=== PATIENT | female | born 1945 | race Caucasian/White ===

== ENCOUNTER 2022-04-26 19:09 | Emergency (ER) | payer MEDICARE ==
[~2022-04-26] VITALS: Ht 160 cm; Wt 37.8 kg
[2022-04-26] MEDS ORDERED: acetaminophen 325mg tablet PO ONE (19:55)
[2022-04-26 20:30] LABS: BASOPHILS % (AUTO) 0.2 % (0-1); EOSINOPHILS % (AUTO) 0.2 % (0-6); HEMOGLOBIN 11.6 g/dl (12.0-16.0); LYMPHOCYTES # (AUTO) 0.6 X10'3 (1.1-4.8); LYMPHOCYTES % (AUTO) 8.7 % (21-51); MEAN CORPUSCULAR HEMOGLOBIN 31.8 PG (27.0-31.0); MEAN CORPUSCULAR HGB CONC 33.1 g/dL (33.0-36.5); MEAN CORPUSCULAR VOLUME 96.1 FL (78-98); MEAN PLATELET VOLUME 9.5 FL (7.4-10.4); MONOCYTES # (AUTO) 0.4 X10'3 (0-0.9); MONOCYTES % (AUTO) 5.1 % (2-12); NEUTROPHILS # (AUTO) 6.3 X10'3 (1.8-7.7); NEUTROPHILS % (AUTO) 85.8 % (42-75); PLATELET COUNT 271 X10'3 (140-440); RED BLOOD COUNT 3.65 X10'6 (4.20-5.60); RED CELL DISTRIBUTION WIDTH 14.9 % (11.5-14.5); WHITE BLOOD COUNT 7.4 X10'3 (4.5-11.0)
[2022-04-26 21:18] LABS: ALANINE AMINOTRANSFERASE 26 U/L (12-78); ALBUMIN 2.8 G/DL (3.4-5.0); ALBUMIN/GLOBULIN RATIO 0.8 (1.1-1.5); ALKALINE PHOSPHATASE 68 IU/L (46-116); ANION GAP 9 (8-16); ASPARTATE AMINO TRANSFERASE 28 U/L (10-37); BILIRUBIN,TOTAL 0.3 MG/DL (0.1-1.0); BLOOD UREA NITROGEN 21 MG/DL (7-18); BUN/CREATININE RATIO 40.4 (6.6-38.0); CALCIUM 9.2 MG/DL (8.5-10.1); CHLORIDE 104 MMOL/L (99-107); CREATININE 0.52 MG/DL (0.40-0.90); GLUCOSE 100 MG/DL (70-104); SODIUM 144 MMOL/L (135-145); TOTAL PROTEIN 6.1 G/DL (6.4-8.2); eGFR > 90 ML/MIN
[2022-04-26] MEDS ORDERED: iohexol 300mg/ml 100ml inj. ONE (21:19)
[2022-04-26 21:27] LABS: CREATINE KINASE 37 U/L (26-192); LIPASE 93 U/L (73-393); MAGNESIUM 1.6 MG/DL (1.5-2.4)
--- NOTE | 2022-04-26 21:30 | NUR ---
talked with Heri and he does not know her allergy's just knows she's allergic to a lot of things including antibotics, states she usally goes to [facility].
[2022-04-26 21:33] LABS: CLARITY,URINE CLEAR (Clear); COLOR,URINE STRAW (Yellow); GLUCOSE, URINE NEGATIVE (Neg); KETONES,URINE NEGATIVE (Neg); LEUKOCYTE ESTERASE ,URINE NEGATIVE (Neg); NITRITES, URINE NEGATIVE (Neg); OCCULT BLOOD,URINE TRACE-INTACT (Neg); PROTEIN,URINE NEGATIVE (Neg); UROBILINOGEN,URINE 0.2 E.U/dL (0.2-1.0)
[2022-04-26 21:35] LABS: UA COLLECTION TYPE STRAIGHT CATH
[2022-04-26 21:47] LABS: BACTERIA,URINE FEW /HPF (Neg); RBC,URINE 0-2 /HPF (0-2); SQUAMOUS EPITHELIAL CELL,UR NONE SEEN /LPF (FEW); WBC,URINE 0-4 /HPF (0-4)
[2022-04-26 21:48] LABS: TRIPLE PHOSPHATE CRYST 1+ /HPF (NEGATIVE)
[2022-04-26 23:38] VITALS: BP 122/72
--- NOTE | 2022-04-26 23:41 | NUR ---
2320 Heri called and notified of dishcharge, states he will come and pick her up, will take about 45 min. [id number] discharged instruction given to patient and discussed over the phone, pt advised to follow up with her doctor, noel roca. of urine, pt cleaned, diaper placed and clothing placed on pt, pt resting in bed at this time awaiting ride from .
== END 2022-04-27 00:06 | disposition home or self-care (01) ==
LOC: ER 19:10
DX: R10.84 Generalized abdominal pain (principal); R11.2 Nausea with vomiting, unspecified; I10 Essential (primary) hypertension; E03.9 Hypothyroidism, unspecified; Z79.899 Other long term (current) drug therapy; Z90.49 Acquired absence of other specified parts of digestive tract
CPT/HCPCS: 36415; 71045; 74177; 80053; 81001; 82550; 83690; 83735; 84439; 84443; 84484; 85025; 93005; 99285; J3490; Q9967

== ENCOUNTER 2023-08-06 18:16 | Emergency (ER) | payer MEDICARE, OTHER ==
[~2023-08-06] VITALS: Ht 160 cm; Wt 44.5 kg
[2023-08-06 20:12] VITALS: BP 139/90; PULSE 80; RESP 16; TEMP 98.6; O2SAT 94
== END 2023-08-06 20:14 | disposition home or self-care (01) ==
LOC: ER 18:17
DX: H57.89 Other specified disorders of eye and adnexa (principal); E03.9 Hypothyroidism, unspecified; I10 Essential (primary) hypertension; Z79.899 Other long term (current) drug therapy
CPT/HCPCS: 99284

== ENCOUNTER 2023-08-17 12:50 | Emergency (ER) | payer MEDICARE ==
[~2023-08-17] VITALS: Ht 162.6 cm; Wt 40.9 kg
[2023-08-17 13:16] VITALS: TEMP 97.6
[2023-08-17] MEDS ORDERED: CYCL-1 PO (17:28)
[2023-08-17] MEDS: cloNIDine 0.1 mg tablet PO ONE (17:38)
[2023-08-17] MEDS: ibuprofen tablet 400 MG TABLET PO ONE (17:38)
[2023-08-17] MEDS: LORazepam 1 MG tablet PO ONE (17:38)
[2023-08-17] MEDS ORDERED: CARB15DR91 LEFT EAR (18:12)
[2023-08-17 18:22] VITALS: BP 169/71; PULSE 69; RESP 16; O2SAT 98
== END 2023-08-17 18:24 | disposition home or self-care (01) ==
LOC: ER 12:51
DX: H61.22 Impacted cerumen, left ear (principal); M79.2 Neuralgia and neuritis, unspecified; I10 Essential (primary) hypertension; E03.9 Hypothyroidism, unspecified; Z90.710 Acquired absence of both cervix and uterus; Z88.0 Allergy status to penicillin
CPT/HCPCS: 99285

== ENCOUNTER 2023-08-23 03:42 | Emergency (ER) | payer MEDICARE, MEDICAID ==
[~2023-08-23] VITALS: Ht 157.5 cm; Wt 54.3 kg
[~2023-08-23 03:42] MED LIST: CARB15DR91 LEFT EAR; CYCL-1 PO
[2023-08-23] MEDS: normal saline 1000ml 1,000 ML IV ONE (04:25)
[2023-08-23] MEDS: ondansetron/PF 4mg/2ml inj IV ONE (04:25)
[2023-08-23 04:42] LABS: BASOPHILS % (AUTO) 0.6 % (0-1); EOSINOPHILS % (AUTO) 0.3 % (0-6); HEMATOCRIT 39.5 % (35.0-45.0); HEMOGLOBIN 13.2 g/dl (12.0-16.0); LYMPHOCYTES # (AUTO) 0.8 X10'3 (1.1-4.8); LYMPHOCYTES % (AUTO) 11.7 % (21-51); MEAN CORPUSCULAR HEMOGLOBIN 31.3 PG (27.0-31.0); MEAN CORPUSCULAR HGB CONC 33.3 g/dL (33.0-36.5); MEAN CORPUSCULAR VOLUME 93.9 FL (78-98); MEAN PLATELET VOLUME 9.9 FL (7.4-10.4); MONOCYTES # (AUTO) 0.4 X10'3 (0-0.9); MONOCYTES % (AUTO) 5.6 % (2-12); NEUTROPHILS # (AUTO) 5.5 X10'3 (1.8-7.7); NEUTROPHILS % (AUTO) 81.8 % (42-75); PLATELET COUNT 166 X10'3 (140-440); RED CELL DISTRIBUTION WIDTH 14.2 % (11.5-14.5); WHITE BLOOD COUNT 6.7 X10'3 (4.5-11.0)
[2023-08-23 05:00] LABS: ALBUMIN 3.4 G/DL (3.4-5.0); ANION GAP 12 (8-16); BLOOD UREA NITROGEN 11 MG/DL (7-18); BUN/CREATININE RATIO 14.7 (10.0-20.0); CALCIUM 9.7 MG/DL (8.5-10.1); CHLORIDE 98 MMOL/L (99-107); CREATININE 0.75 MG/DL (0.40-0.90); GLUCOSE 101 MG/DL (70-104); MAGNESIUM 1.3 MG/DL (1.5-2.4); PRO BRAIN NATRIURETIC PEPTIDE 602 PG/ML (0-450); SODIUM 139 MMOL/L (135-145); TOTAL CARBON DIOXIDE 29.2 MMOL/L (24-32); eCRCL 49 ML/MIN; eGFR 74 ML/MIN
[2023-08-23 05:09] LABS: POTASSIUM 3.1 MMOL/L (3.5-5.1)
[2023-08-23] MEDS: POTASSIUM BICARB 20meq eff tab 20 MEQ TABLET.EFF PO ONE (05:15)
[2023-08-23 05:26] VITALS: PULSE 93
[2023-08-23] MEDS: LIDOcaine 2% Viscous 15ml cup MM ONE (05:44)
[2023-08-23] MEDS ORDERED: LIDO15SO9 PO (06:06)
[2023-08-23] MEDS ORDERED: ONDA8TAB13 PO (06:06)
[2023-08-23 06:48] VITALS: BP 108/65; RESP 14; TEMP 97.7; O2SAT 98
== END 2023-08-23 06:51 | disposition home or self-care (01) ==
LOC: ER 03:42
DX: R11.2 Nausea with vomiting, unspecified (principal); R29.2 Abnormal reflex; I10 Essential (primary) hypertension; E03.9 Hypothyroidism, unspecified; Z88.1 Allergy status to other antibiotic agents; Z79.899 Other long term (current) drug therapy; Z90.710 Acquired absence of both cervix and uterus; Z98.51 Tubal ligation status
CPT/HCPCS: 36415; 71045; 80048; 83735; 83880; 84145; 84484; 85025; 93005; 96361; 96374; 99285; J2405; J7030

== ENCOUNTER 2024-09-06 15:28 | Emergency (ER) | payer MEDICARE, OTHER, MEDICAID ==
[~2024-09-06] VITALS: Ht 162.6 cm; Wt 40.0 kg
[~2024-09-06 15:28] MED LIST changes: +LIDO15SO9 PO; +ONDA-245 PO
[2024-09-06] MEDS: ALPRAZolam 0.25mg tablet PO STA (16:47)
[2024-09-06] MEDS: sennosides/docusate sodium tablet PO STA (16:48)
[2024-09-06] MEDS: polyethylene glycol 3350 17gm powd pack PO STA (16:48)
[2024-09-06] MEDS ORDERED: SENN-302 PO (18:02)
[2024-09-06] MEDS ORDERED: POLY119P2 PO (18:02)
[2024-09-06 19:48] VITALS: BP 104/62; PULSE 74; RESP 16; TEMP 98.1; O2SAT 96
== END 2024-09-06 19:00 | disposition home or self-care (01) ==
LOC: ER 15:29
DX: K59.00 Constipation, unspecified (principal); E03.9 Hypothyroidism, unspecified; F41.9 Anxiety disorder, unspecified; I10 Essential (primary) hypertension; Z88.0 Allergy status to penicillin; Z90.710 Acquired absence of both cervix and uterus
CPT/HCPCS: 99284

== ENCOUNTER 2025-02-19 02:56 | Emergency (ER) | payer MEDICARE, OTHER, MEDICAID ==
[~2025-02-19] VITALS: Ht 160 cm; Wt 32.4 kg
[~2025-02-19 02:56] MED LIST changes: +POLY119P2 PO; +SENN-302 PO
--- NOTE | 2025-02-19 03:26 | Physician Documentation ---
History of Present Illness ~ Chief Complaint: Anxiety Stated Complaint: ANXIETY A BLS Time Seen by MD: 03:03 Primary Medical Doctor: none HPI Patient presents to the emergency room for anxiety attack. Patient has history of anxiety in his had similar episodes before. Patient states she was talking with her has been tonight at her house regarding medical conditions and she began having a panic attack. Patient is feeling better upon my arrival to bedside. She took one of her ativan 30 min prior to calling EMS. Denies CP/palpitations Medication Reconciliation Allergies: Coded Allergies: ampicillin (Verified Allergy, Unknown, 02/19/25) Scheduled Carbamide Peroxide (Debrox), 5 DROP LEFT EAR Q12H Cyclobenzaprine* (Cyclobenzaprine*), 1 TAB PO Q8H Lidocaine HCl (Lidocaine HCl Viscous), 5 ML PO Q8H Ondansetron 8mg ODT (Ondansetron Odt), 1 TAB PO Q8H Polyethylene Glycol 3350 (Miralax), 17 GM PO DAILY Sennosides/Docusate Sodium (Senna Plus 8.6-50 mg Tablet), 2 TAB PO BID Past Medical History Past Medical History: Hypertension, Hypothyroidism Past Surgical History: hysterectomy, tubal ligation Alcohol Use: None Drug Use: none Lives with: Spouse Lives In: Home Review of Systems All Other Systems at this time: Reviewed and Negative Physical Exam Vital Signs: Heart Rate: 79, Respiratory Rate: 18, BP: 144/76, Pulse Oximetry: 98, Weight: 32.400 Oxygen Flow Rate: 0 General Appearance General: Patient is sleeping, easily aroused, oriented x4 in no acute distress. very talkative Head: Normocephalic and atraumatic. Eyes: Conjunctival normal. EOMI. PERRL. ENT: Mucous membranes moist. Edentulous Neck: Supple, trachea is midline. Chest: Clear to auscultation bilaterally without rales, rhonchi, or wheezes. There is no accessory muscle use or retractions. Cardiac: RRR without murmurs, gallops, or rubs. Abd: Soft, nondistended, nontender, with normoactive bowel sounds. No guarding, rebound, or rigidity. Progress Results/Orders Results/Orders Completed Orders - АЛЕКСАНДР MEREDITH MD Electrocardiogram (02/19/25 03:21) Vital Signs 02/19/25 03:04 Pulse 79 Resp 18 B/P (MAP) 144/76 Pulse Ox 98 O2 Flow Rate 0 EKG/XRAY/CT/US/VASC/MRI EKG : Additional Comment EKG interpreted by myself shows time of 0405, rate 77, sinus rhythm, normal axis, no ST changes Medical Decision Making Findings Patient presents to the emergency room with chief complaint of panic attack. Differentials include but are not limited to panic attack, cardiac arrhythmia, ACS. Patient is currently sleeping state she feels much better. EKG reassuring. I do not feel emergent labs or imaging that has necessary at this time Departure Disposition: HOME / SELF CARE / HOMELESS Impression: Primary Impression: Panic attack Condition: Improved Discharge Instructions: Panic Attack Referrals: NO PRIMARY CARE PROVIDER (PCP) Signature Scribe Signature: No scribe Attestation: The note accurately reflects work and decisions made by me.Александр Meredith MD 02/19/25 04:14 АЛЕКСАНДР MEREDITH MD Feb 19, 2025 03:26
--- NOTE | 2025-02-19 04:09 | ELECTROCARDIOGRAPH REPORT ---
[facility] Test Date: 2025-02-19 Test Time: 04:05:10 Pat Name: SHAYE ROCHA Department: [facility] Patient ID: [facility]-[id number] Room: Gender: F [employer]: : 1945 Requested By: RANJAN THEODORE Order Number: [id number] Reading MD: Measurements Intervals T[place] Rate: 77 P: 82 MD: 143 QRS: 59 QRSD: 90 T: 67 QT: 377 QTc: 427 Interpretive Statements Sinus rhythm Probable left atrial enlargement Please click the below link to view image of tracing.
[2025-02-19 05:02] VITALS: BP 102/48; PULSE 85; RESP 15; TEMP 98.1; O2SAT 98
== END 2025-02-19 05:05 | disposition home or self-care (01) ==
LOC: ER 02:56
DX: F41.0 Panic disorder [episodic paroxysmal anxiety] (principal); E03.9 Hypothyroidism, unspecified; I10 Essential (primary) hypertension; Z90.710 Acquired absence of both cervix and uterus; Z88.1 Allergy status to other antibiotic agents; Z79.899 Other long term (current) drug therapy
CPT/HCPCS: 93005; 99284

== ENCOUNTER 2025-02-28 23:49 | Emergency (ER) | payer MEDICARE, OTHER, MEDICAID ==
[~2025-02-28] VITALS: Ht 157.5 cm; Wt 35.4 kg
[2025-03-01 01:13] VITALS: BP 139/68; PULSE 76; RESP 20; O2SAT 99
--- NOTE | 2025-03-01 03:09 | Physician Documentation ---
History of Present Illness ~ Chief Complaint: Allergic Reaction Stated Complaint: ALLERGIC REACTION Time Seen by MD: 03:06 OK to notify your PCP?: Yes Primary Medical Doctor: none Source: patient, RN/MD, EMS, RN notes reviewed, EMS notes reviewed, old records Mode of Arrival: EMS Exam Limitations: no limitations HPI This pleasant female was trying to take some tumor X because she heard that the doctor say it is good for you. So she took a capsule but for whatever reason the capsule did not break she swallowed it but she stated that her tongue and throat immediately started burning felt like it was swelling she took two Benadryl the swelling improved but she still has a burning sensation and it feels sore. 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 She has no cardiac issues he looks very comfortable Medication Reconciliation Allergies: Coded Allergies: ampicillin (Verified Allergy, Unknown, 03/01/25) Scheduled Carbamide Peroxide (Debrox), 5 DROP LEFT EAR Q12H Cyclobenzaprine* (Cyclobenzaprine*), 1 TAB PO Q8H Lidocaine HCl (Lidocaine HCl Viscous), 5 ML PO Q8H Ondansetron 8mg ODT (Ondansetron Odt), 1 TAB PO Q8H Polyethylene Glycol 3350 (Miralax), 17 GM PO DAILY Sennosides/Docusate Sodium (Senna Plus 8.6-50 mg Tablet), 2 TAB PO BID Past Medical History Past Medical History: Hypertension, Hypothyroidism Past Surgical History: hysterectomy, tubal ligation Alcohol Use: None Drug Use: none Lives with: Spouse Lives In: Home Review of Systems All Other Systems at this time: Reviewed and Negative Physical Exam Vital Signs: RN Vital Signs have been reviewed: Yes, Heart Rate: 76, Respiratory Rate: 20, BP: 139/68, Pulse Oximetry: 99, Weight: 35.350 Oxygen Flow Rate: 2.0 Physical Exam General: The patient is well developed, well nourished, nontoxic appearing and is in no acute distress. Skin: [place], warm and dry with no rashes. HEENT: Head was normocephalic and atraumatic. Eyes - pupils equal, round, reactive to light and accommodation. Extraocular movements were intact. Conjunctivae were nonicteric. The mouth and oropharynx were clear with moist mucous membranes. There were no pharyngeal exudates or erythema. Normal voice. No signs of swelling or edema of the oropharynx. Neck: Supple and nontender. There was no jugular venous distention, Chest: Clear to auscultation bilaterally without wheezes, rales or rhonchi. No accessory muscle use. Heart: Rate regular and rhythmic. S1, S2. No murmurs. Palpation of the chest wall was normal. Abdomen: Soft, nontender and nondistended. Positive bowel sounds. No guarding or rebound. No hepatosplenomegaly or palpable masses. Extremities: No cyanosis, clubbing or edema. The patient moves all extremities. Pulses were equal and symmetric. Neurologic: Motor sensory grossly intact Psychologic: The patient was oriented to person, place and time. The patient demonstrated appropriate judgement and insight. Progress Results/Orders Reviewed/noted all lab results: Yes Results/Orders Completed Orders - HONG CULLEN MD Alprazolam Tablet (Xanax Tablet) (03/01/25 01:00) Diphenhydramine Oral Solution (Hydramine (03/01/25 03:10) Medications Received in ER Medications (Trade) Dose Ordered Sig/[place] Route PRN Reason Start Time Stop Time Status Last Admin Dose Admin (Xanax tablet) 1 mg ONCE ONCE PO 03/01/25 01:00 03/01/25 01:01 DC 03/01/25 01:02 1 MG Vital Signs 02/28/25 03/01/25 03/01/25 23:57 00:00 01:13 Pulse 83 76 Resp 18 18 20 B/P (MAP) 125/67 139/68 (91) Pulse Ox 95 99 O2 Flow Rate 2.0 Re-Evaluation Re-Evaluation : Re-Evaluation: Resolved, Improved Progress This is a pleasant 79-year-old female. She was given prednisone Xanax xylocaine and some Maalox. There was no signs of acute allergic reaction at this time. Patient is given reassurance and discharged home. Medical Decision Making Differential Dx:Considerations: Include: Anaphylaxis, Angioedema, Bronchospasm, Contact dermatitis, Drug reaction, Hypotension, Renal failure, Respiratory failure, Shock, Urticaria, Other Departure Disposition: HOME / SELF CARE / HOMELESS Impression: Primary Impression: Acute allergic reaction Qualified Codes: T78.40XA - Allergy, unspecified, initial encounter Additional Impression: Food allergy Condition: Stable Discharge Instructions: Anaphylactic Reaction, Adult, [id number] Referrals: NO PRIMARY CARE PROVIDER (PCP) Education Educated: Patient Educated regarding: diagnosis, prognosis, need for follow up, other Signature Scribe Signature: No scribed Attestation: The note accurately reflects work and decisions made by me.Hong Cullen MD 03/01/25 03:08 HONG CULLEN MD Mar 01, 2025 03:09
[2025-03-01] MEDS: mag hydrox/Alum hydrox/simeth 30ml oral suspension PO ONE (03:42)
[2025-03-01] MEDS: LIDOcaine 2% Viscous 15ml cup MM ONE (03:42)
[2025-03-01] MEDS: diphenhydrAMINE 25 MG/10 ML UD oral solution PO ONE (03:42)
== END 2025-03-01 04:23 | disposition home or self-care (01) ==
LOC: ER 23:49
DX: T78.19XA Other adverse food reactions, not elsewhere classified, initial encounter (principal); I10 Essential (primary) hypertension; E03.9 Hypothyroidism, unspecified; Z90.710 Acquired absence of both cervix and uterus; Z88.1 Allergy status to other antibiotic agents; Z79.899 Other long term (current) drug therapy; X58.XXXA Exposure to other specified factors, initial encounter
CPT/HCPCS: 99284; A4615; Q0163